=== PATIENT | female | born 1990 | race American Indian/Alaskan Native ===

== ENCOUNTER 2016-11-26 01:35 | Emergency (ER) | payer SELFPAY ==
[2016-11-26] MEDS ORDERED: Ketorolac 60 MG/2 ML SDV IM ONE (01:54)
--- NOTE | 2016-11-26 01:57 | EDM.PDOC ---
ED HPI GENERAL MEDICAL PROBLEM - General Chief Complaint: Headache Stated Complaint: HEAD PAIN Time Seen by Provider: 11/26/16 01:51 - History of Present Illness INITIAL COMMENTS - FREE TEXT/NARRATIVE: HISTORY AND PHYSICAL: History of present illness: Patient's 26-year-old female presents with a concern of dental fracture she's had for several months and now has right upper molar pain related to the fracture she states is also causing a right-sided headache Review of systems: As per history of present illness and below otherwise all systems reviewed and negative. Past medical history: As per history of present illness and as reviewed below otherwise noncontributory. Surgical history: As per history of present illness and as reviewed below otherwise noncontributory. Social history: No reported history of drug or alcohol abuse. Family history: As per history of present illness and as reviewed below otherwise noncontributory. Physical exam: HEENT: Atraumatic, normocephalic, pupils reactive, negative for conjunctival pallor or scleral icterus, mucous membranes moist, throat clear, neck supple, nontender, trachea midline. Dental fracture noted right upper molar Lungs: Clear to auscultation, breath sounds equal bilaterally, chest nontender. Heart: S1S2, regular, negative for clicks, rubs, or JVD. Abdomen: Soft, nondistended, nontender. Negative for masses or hepatosplenomegaly. Negative for costovertebral tenderness. Pelvis: Stable nontender. Genitourinary: Deferred. Rectal: Deferred. Extremities: Atraumatic, negative for cords or calf pain. Neurovascular unremarkable. Neuro: Awake, alert, oriented. Cranial nerves II through XII unremarkable. Cerebellum unremarkable. Motor and sensory unremarkable throughout. Exam nonfocal. Diagnostics: None Therapeutics: Toradol 60 mg IM Impression: #1 dentalgia #2 dental fracture Definitive disposition and diagnosis as appropriate pending reevaluation and review of above. - Related Data Allergies Allergy/AdvReac Type Severity Reaction Status Date / Time No Known Allergies Allergy Verified 02/04/15 15:35 Home Meds: Home Meds Vit No.130/Iron/FA [ Vitamins] 1 PO DAILY 07/11/14 [History] Vortioxetine Hydrobromide [Brintellix] 1 tab PO DAILY 02/04/15 [History] Past Medical History - Past Health History Medical/Surgical History: Denies Medical/Surgical History Other Genitourinary History: interstitial cystitis Social & Family History - Tobacco Use Smoking Status *Q: Current Every Day Smoker Years of Tobacco use: 4 Packs/Tins Daily: 0.1 Used Tobacco, but Quit: No Month Tobacco Last Used: june Second Hand Smoke Exposure: Yes - Alcohol Use Days Per Week of Alcohol Use: 1 Number of Drinks Per Day: 5 Total Drinks Per Week: 5 - Recreational Drug Use Recreational Drug Use: No Drug Use in Last 12 Months: Yes Recreational Drug Type: Reports: Marijuana/Hashish Recreational Drug Use Frequency: Binges ED ROS GENERAL - Review of Systems Review Of Systems: ROS reveals no pertinent complaints other than HPI. ED EXAM, GENERAL - Physical Exam Exam: See Below (See dictation) Course - Vital Signs Last Recorded V/S: Last Vital Signs Temp 36.6 C 11/26/16 01:49 Pulse 84 11/26/16 01:49 Resp 18 11/26/16 01:49 BP 132/102 H 11/26/16 01:49 Pulse Ox 97 11/26/16 01:49 Departure - Departure Time of Disposition: 01:56 Disposition: Home, Self-Care 01 Condition: Good Clinical Impression: Dentalgia - Discharge Information Referrals: PCP,None [Primary Care Provider] - Additional Instructions: The following information is given to patients seen in the emergency department who are being discharged to home. This information is to outline your options for follow-up care. We provide all patients seen in our emergency department with a follow-up referral. The need for follow-up, as well as the timing and circumstances, are variable depending upon the specifics of your emergency department visit. If you don't have a primary care physician on staff, we will provide you with a referral. We always advise you to contact your personal physician following an emergency department visit to inform them of the circumstance of the visit and for follow-up with them and/or the need for any referrals to a consulting specialist. The emergency department will also refer you to a specialist when appropriate. This referral assures that you have the opportunity for followup care with a specialist. All of these measure are taken in an effort to provide you with optimal care, which includes your followup. Under all circumstances we always encourage you to contact your private physician who remains a resource for coordinating your care. When calling for followup care, please make the office aware that this follow-up is from your recent emergency room visit. If for any reason you are refused follow-up, please contact the [facility] emergency department at and asked to speak to the emergency department charge nurse. Sylwia Davenport as prescribed keep dental appointment is scheduled return as needed as discussed
[2016-11-26 02:40] VITALS: BP 130/82
== END 2016-11-26 02:30 | disposition home or self-care (01) ==
LOC: MW.ED 01:35
DX: K08.89 Other specified disorders of teeth and supporting structures (principal); S02.5XXD Fracture of tooth (traumatic), subsequent encounter for fracture with routine healing; F17.210 Nicotine dependence, cigarettes, uncomplicated
CPT/HCPCS: 96372; 99283; J1885; 99282

== ENCOUNTER 2019-01-21 17:58 | Emergency (ER) | payer SELFPAY ==
--- NOTE | 2019-01-21 18:33 | EDM.PDOC ---
ED HPI GENERAL MEDICAL PROBLEM - General Chief Complaint: Genitourinary Problem Stated Complaint: stomach pain Time Seen by Provider: 01/21/19 18:00 Source of Information: Reports: Patient History Limitations: Reports: No Limitations - History of Present Illness INITIAL COMMENTS - FREE TEXT/NARRATIVE: HISTORY AND PHYSICAL: History of present illness: Patient is a 28-year-old female who presents to the emergency room with complaints of dysuria and low back pain. She is concerned she may have a UTI. She denies any vaginal discharge or concerns of STDs. Patient denies any fever, chills, headache, change in vision, syncope or near syncope. Denies any chest pain, back pain, shortness of breath or cough. Denies any abdominal pain, nausea , vomiting, diarrhea, constipation or dysuria. Has not noted any blood in urine or stool. Patient has been eating and drinking appropriately. Review of systems: As per history of present illness and below otherwise all systems reviewed and negative. Past medical history: As per history of present illness and as reviewed below otherwise noncontributory. Surgical history: As per history of present illness and as reviewed below otherwise noncontributory. Social history: See social history for further information Family history: As per history of present illness and as reviewed below otherwise noncontributory. Physical exam: General: Well-developed and well nourished 28 year old female. Alert and oriented. Nontoxic appearing and in no acute distress. HEENT: Atraumatic, normocephalic, pupils equal and reactive bilaterally, negative for conjunctival pallor or scleral icterus, mucous membranes moist, trachea midline. No drooling or trismus noted. No meningeal signs. No hot potato voice noted. Lungs: Clear to auscultation, breath sounds equal bilaterally, chest nontender. Heart: S1S2, regular rate and rhythm without overt murmur Abdomen: Soft, nondistended, nontender. Negative for masses. Negative for costovertebral tenderness. Pelvis: Stable nontender. Skin: Intact, warm, dry. No lesions or rashes noted. Extremities: Atraumatic, moves all extremities per self without difficulty or deficits, negative for cords or calf pain. Neurovascular unremarkable. Neuro: Awake, alert, oriented. Cranial nerves II through XII unremarkable. Cerebellum unremarkable. Motor and sensory unremarkable throughout. Exam nonfocal. Notes: Patient does have a urinary tract infection. She has been able to keep down fluid does not have any flank pain at this time. Culture has been added. We'll give Rocephin IM and medication education for home. We discussed signs and symptoms that would prompt him to return to the emergency room. Supportive care measures were reviewed and discussed. Voices understanding and is agreeable to plan of care. Denies any further questions or concerns at this time. Diagnostics: UA, HCGU Therapeutics: Rocephin IM Prescription: Cipro BID x 7 days Pyridium Tramadol (#15) Impression: UTI Plan: 1. Increase your oral fluids. 2. Take medications as prescribed. 3. Tylenol and/or ibuprofen as needed for pain management. 4. Follow up with your primary care for re-evaluation. Return to the ED as needed and as discussed. Definitive disposition and diagnosis as appropriate pending reevaluation and review of above. bladder/back Pain Score (Numeric/FACES): 7 - Related Data Allergies Allergy/AdvReac Type Severity Reaction Status Date / Time No Known Allergies Allergy Verified 01/21/19 18:19 Home Meds: Home Meds Citalopram [Citalopram HBr] 25 mg PO DAILY 01/21/19 [History] Past Medical History - Past Health History Medical/Surgical History: Denies Medical/Surgical History HEENT History: Reports: None Cardiovascular History: Reports: None Respiratory History: Reports: None Gastrointestinal History: Reports: None Genitourinary History: Reports: Other (See Below) Other Genitourinary History: interstitial cystitis 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: , Other (See Below) Other SPRING PRODUCTION SUPERVISOR History: Miscarriage Musculoskeletal History: Reports: Other (See Below) Other Musculoskeletal History: scoliosis Neurological History: Reports: None Psychiatric History: Reports: Depression Endocrine/Metabolic History: Reports: None Hematologic History: Reports: None Immunologic History: Reports: None Oncologic (Cancer) History: Reports: None Dermatologic History: Reports: None - Infectious Disease History Infectious Disease History: Reports: Chicken Pox - Past Surgical History Head Surgeries/Procedures: Reports: None HEENT Surgical History: Reports: None Cardiovascular Surgical History: Reports: None Respiratory Surgical History: Reports: None GI Surgical History: Reports: None Female Surgical History: Reports: None Endocrine Surgical History: Reports: None Neurological Surgical History: Reports: None Musculoskeletal Surgical History: Reports: None Oncologic Surgical History: Reports: None Dermatological Surgical History: Reports: None Social & Family History - Family History Family Medical History: Noncontributory - Tobacco Use Smoking Status *Q: Current Every Day Smoker Years of Tobacco use: 8 Packs/Tins Daily: 0.5 - Caffeine Use Caffeine Use: Reports: Coffee, Soda - Recreational Drug Use Recreational Drug Use: No ED ROS GENERAL - Review of Systems Review Of Systems: ROS reveals no pertinent complaints other than HPI. ED EXAM, RENAL/ - Physical Exam Exam: See Below (See dictation) Course - Vital Signs Last Recorded V/S: Last Vital Signs Temp 97.5 F 01/21/19 19:08 Pulse 85 01/21/19 19:08 Resp 14 01/21/19 19:08 BP 115/78 01/21/19 19:08 Pulse Ox 96 01/21/19 19:08 - Orders/Labs/Meds Orders: Active Orders 24 hr Category Date Time Status CULTURE URINE [RM] Stat Lab 01/21/19 18:40 Received Labs: Laboratory Tests 01/21/19 01/21/19 Range/Units 18:40 18:40 Urine Color YELLOW Urine Appearance SLT CLOUDY Urine pH 6.0 (5.0-8.0) Ur Specific Merritt 1.025 (1.001-1.035) Urine Protein 100 H (NEGATIVE) mg/dL Urine Glucose (UA) NEGATIVE (NEGATIVE) mg/dL Urine Ketones NEGATIVE (NEGATIVE) mg/dL Urine Occult Blood MODERATE H (NEGATIVE) Urine Nitrite POSITIVE H (NEGATIVE) Urine Bilirubin NEGATIVE (NEGATIVE) Urine Urobilinogen 0.2 (<2.0) EU/dL Ur Leukocyte Esterase MODERATE H (NEGATIVE) Urine RBC 2-4 (0-2/HPF) Urine WBC 70-80 (0-5/HPF) Ur Epithelial Cells FEW (NONE-FEW) Urine Bacteria 2+ H (NEGATIVE) Urine Mucus LIGHT (NONE-MOD) Urine HCG, Qual NEGATIVE (NEGATIVE) Meds: Medications Discontinued Medications Generic Name Dose Route Start Last Admin Trade Name Freq PRN Reason Stop Dose Admin Ceftriaxone Sodium 1 gm 01/21/19 19:09 01/21/19 19:18 Rocephin IM 01/21/19 19:10 1 gm ONETIME ONE Administration Lidocaine HCl Confirm 01/21/19 19:13 01/21/19 19:18 Xylocaine-Mpf 1% Administered 01/21/19 19:14 2.1 mls/hr Dose Administration 2 mls @ as directed .ROUTE .STK-MED ONE Departure - Departure Time of Disposition: 19:30 Disposition: Home, Self-Care 01 Clinical Impression: UTI (urinary tract infection) Qualifiers: Urinary tract infection type: acute cystitis Hematuria presence: with hematuria Qualified Code(s): N30.01 - Acute cystitis with hematuria - Discharge Information Instructions: Urinary Tract Infection, Adult, [id number] Referrals: Robert Denny MD [Primary Care Provider] - Forms: ED Department Discharge Additional Instructions: The following information is given to patients seen in the emergency department who are being discharged to home. This information is to outline your options for follow-up care. We provide all patients seen in our emergency department with a follow-up referral. The need for follow-up, as well as the timing and circumstances, are variable depending upon the specifics of your emergency department visit. If you don't have a primary care physician on staff, we will provide you with a referral. We always advise you to contact your personal physician following an emergency department visit to inform them of the circumstance of the visit and for follow-up with them and/or the need for any referrals to a consulting specialist. The emergency department will also refer you to a specialist when appropriate. This referral assures that you have the opportunity for follow-up care with a specialist. All of these measure are taken in an effort to provide you with optimal care, which includes your follow-up. Under all circumstances we always encourage you to contact your private physician who remains a resource for coordinating your care. When calling for follow-up care, please make the office aware that this follow-up is from your recent emergency room visit. If for any reason you are refused follow-up, please contact the [facility] Emergency Department at and asked to speak to the emergency department charge nurse. [facility] [address] [place] [id number] [address] 1. Increase your oral fluids. 2. Take medications as prescribed. 3. Tylenol and/or ibuprofen as needed for pain management. 4. Follow up with your primary care for re-evaluation. Return to the ED as needed and as discussed. - My Orders Last 24 Hours: My Active Orders 01/21/19 18:40 CULTURE URINE [RM] Stat - Assessment/Plan Last 24 Hours: My Active Orders 01/21/19 18:40 CULTURE URINE [RM] Stat
[2019-01-21 19:09] VITALS: BP 115/78; PULSE 85
[2019-01-21] MEDS ORDERED: cefTRIAXone 1 GM Vial IM ONE (19:09)
[2019-01-21] MEDS ORDERED: Lidocaine 1% 2 ML ONE (19:13)
== END 2019-01-21 19:46 | disposition home or self-care (01) ==
LOC: MW.ED 17:58
DX: N30.01 Acute cystitis with hematuria (principal); F32.9 Major depressive disorder, single episode, unspecified; F17.210 Nicotine dependence, cigarettes, uncomplicated; Z79.899 Other long term (current) drug therapy
CPT/HCPCS: 81001; 81025; 87086; 96372; 99283; J0696; J2001; 87088; 87186

== ENCOUNTER 2019-06-18 00:09 | Emergency (ER) | payer OTHER ==
[2019-06-18] MEDS ORDERED: LORazepam 1 MG Tab PO ONE (01:25)
[2019-06-18] MEDS ORDERED: LORazepam 1 MG Tab ONE (01:26)
--- NOTE | 2019-06-18 02:09 | CR ---
Indication: Chest pain Technique: Chest 1 view Comparison: 10/19/2017 Findings/Impression: Cardiovascular and mediastinum: Stable cardiomediastinal silhouette, allowing for differences in technique. Lungs and pleural space: Slight ill-defined increased opacity in the lateral left base is at least partially related to overlying soft tissues. Correlate clinically and follow up with PA technique. No pleural effusions. No pneumothorax seen. Bones and soft tissues: No significant findings. Dictated by North English MD @ 06/18/2019 2:08:05 AM Dictated by: North English MD @ 06/18/2019 02:08:11 (Electronically Signed)
--- NOTE | 2019-06-18 02:41 | EDM.PDOC ---
ED HPI GENERAL MEDICAL PROBLEM - General Chief Complaint: Respiratory Problem Stated Complaint: SHORTNESS OF BREATH Time Seen by Provider: 06/18/19 00:36 Source of Information: Reports: Patient History Limitations: Reports: No Limitations - History of Present Illness INITIAL COMMENTS - FREE TEXT/NARRATIVE: 29-year-old female who presents the emergency room burning in the chest after taking some herbal tea. Patient states she feels anxious and her chest joseph and she is concerned about that. Onset: Today Duration: Hour(s): Location: Reports: Chest Quality: Reports: Burning Severity: Mild Improves with: Reports: None Worsens with: Reports: None Associated Symptoms: Reports: No Other Symptoms chest Pain Score (Numeric/FACES): 7 - Related Data Allergies Allergy/AdvReac Type Severity Reaction Status Date / Time No Known Allergies Allergy Verified 01/21/19 18:19 Home Meds: Home Meds Citalopram [Citalopram HBr] 25 mg PO DAILY 01/21/19 [History] Past Medical History - Past Health History Medical/Surgical History: Denies Medical/Surgical History HEENT History: Reports: None Cardiovascular History: Reports: None Respiratory History: Reports: None Gastrointestinal History: Reports: None Genitourinary History: Reports: Other (See Below) Other Genitourinary History: interstitial cystitis 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: , 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 (See Below) Other FISCAL SERVICES MANAGER History: Miscarriage Musculoskeletal History: Reports: Other (See Below) Other Musculoskeletal History: scoliosis Neurological History: Reports: None Psychiatric History: Reports: Depression Endocrine/Metabolic History: Reports: None Hematologic History: Reports: None Immunologic History: Reports: None Oncologic (Cancer) History: Reports: None Dermatologic History: Reports: None - Infectious Disease History Infectious Disease History: Reports: None - Past Surgical History Head Surgeries/Procedures: Reports: None HEENT Surgical History: Reports: None Cardiovascular Surgical History: Reports: None Respiratory Surgical History: Reports: None GI Surgical History: Reports: None Female Surgical History: Reports: None Endocrine Surgical History: Reports: None Neurological Surgical History: Reports: None Musculoskeletal Surgical History: Reports: None Oncologic Surgical History: Reports: None Dermatological Surgical History: Reports: None Social & Family History - Family History Family Medical History: Noncontributory - Tobacco Use Smoking Status *Q: Current Every Day Smoker Years of Tobacco use: 6 Packs/Tins Daily: 1 - Caffeine Use Caffeine Use: Reports: Coffee, Soda - Recreational Drug Use Recreational Drug Use: No ED ROS GENERAL - Review of Systems Review Of Systems: See Below Constitutional: Reports: No Symptoms HEENT: Reports: No Symptoms Respiratory: Reports: Shortness of Breath Cardiovascular: Reports: Chest Pain Endocrine: Reports: No Symptoms GI/Abdominal: Reports: No Symptoms : Reports: No Symptoms Musculoskeletal: Reports: No Symptoms Skin: Reports: No Symptoms Neurological: Reports: No Symptoms Psychiatric: Reports: No Symptoms Hematologic/Lymphatic: Reports: No Symptoms Immunologic: Reports: No Symptoms ED EXAM, GENERAL - Physical Exam Exam: See Below Exam Limited By: No Limitations General Appearance: Alert, WD/WN, Anxious Eye Exam: Bilateral Eye: Normal Fundi, Normal Inspection Nose: Normal Inspection, Normal Mucosa Throat/Mouth: Normal Inspection, Normal Lips, Normal Teeth Head: Atraumatic, Normocephalic Neck: Normal Inspection, Supple Respiratory/Chest: No Respiratory Distress, Lungs Clear, No Accessory Muscle Use Cardiovascular: Normal Peripheral Pulses, Regular Rate, Rhythm, No JVD, No Murmur GI/Abdominal: Normal Bowel Sounds, Soft, Non-Tender, No Distention, No Abnormal Bruit (Female) Exam: Normal External Exam, Normal Speculum Exam Back Exam: Normal Inspection Extremities: Normal Inspection Neurological: Alert, Oriented, CN II-XII Intact, Normal Cognition Psychiatric: Normal Affect, Normal Mood Skin Exam: Warm, Intact, Normal Color Lymphatic: No Adenopathy EKG INTERPRETATION QRS: Normal ST-T: Normal QT: Normal Course - Vital Signs Last Recorded V/S: Last Vital Signs Temp 97.4 F 06/18/19 00:27 Pulse 96 06/18/19 00:27 Resp 18 06/18/19 00:27 BP 145/89 H 06/18/19 00:27 Pulse Ox 98 06/18/19 00:27 - Orders/Labs/Meds Orders: Active Orders 24 hr Category Date Time Status EKG Documentation Completion [RC] STAT Care 06/18/19 00:34 Active Meds: Medications Discontinued Medications Generic Name Dose Route Start Last Admin Trade Name Freq PRN Reason Stop Dose Admin Lorazepam 1 mg 06/18/19 01:25 06/18/19 01:30 Ativan PO 06/18/19 01:26 1 mg ONETIME ONE Administration Lorazepam Confirm 06/18/19 01:26 Ativan Administered 06/18/19 01:27 Dose 1 mg .ROUTE .STK-MED ONE Departure - Departure Time of Disposition: 02:39 Disposition: Home, Self-Care 01 Clinical Impression: Anxiety - Discharge Information Referrals: Robert Denny MD [Primary Care Provider] - Sepsis Event Note - Evaluation Sepsis Screening Result: No Definite Risk - Focused Exam Vital Signs: Vital Signs Temp Pulse Resp BP Pulse Ox 06/18/19 00:27 97.4 F 96 18 145/89 H 98 Date Exam was Performed: 06/18/19 Time Exam was Performed: 02:36 - My Orders Last 24 Hours: My Active Orders 06/18/19 00:34 EKG Documentation Completion [RC] STAT - Assessment/Plan Last 24 Hours: My Active Orders 06/18/19 00:34 EKG Documentation Completion [RC] STAT
[2019-06-18 02:54] VITALS: BP 118/74; PULSE 79
== END 2019-06-18 02:56 | disposition home or self-care (01) ==
LOC: MW.ED 00:09
DX: F41.9 Anxiety disorder, unspecified (principal); F32.9 Major depressive disorder, single episode, unspecified; F17.210 Nicotine dependence, cigarettes, uncomplicated; Z79.899 Other long term (current) drug therapy
CPT/HCPCS: 71045; 93005; 99285; A9270

== ENCOUNTER 2020-08-16 21:35 | Emergency (ER) | payer OTHER ==
[2020-08-16] MEDS ORDERED: Ketorolac 30 MG/ML SDV IM ONE (21:44)
[2020-08-16] MEDS ORDERED: Diazepam 2 MG Tab PO ONE (21:44)
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
[2020-08-17] MEDS ORDERED: Acetaminophen/oxyCODONE 325-10 MG Tab PO ONE (00:04)
[2020-08-17 00:23] VITALS: BP 112/76; PULSE 70
== END 2020-08-17 00:25 | disposition home or self-care (01) ==
LOC: MW.ED 21:35
DX: M62.838 Other muscle spasm (principal)
CPT/HCPCS: 70450; 71045; 72125; 72131; 96372; 99284; A9270; J1885; 99283

== ENCOUNTER 2021-02-10 23:49 | Emergency (ER) | payer OTHER ==
[2021-02-11] MEDS ORDERED: Lactated Ringers 1,000 ML IV ONE (00:01)
[2021-02-11] MEDS ORDERED: Sodium Chloride 0.9% 10 ML Syringe FLUSH PRN (00:01)
[2021-02-11] MEDS ORDERED: Sodium Chloride 0.9% 2.5 ML Syringe FLUSH PRN (00:01)
--- NOTE | 2021-02-11 00:05 | EDM.PDOC ---
ED HPI GENERAL MEDICAL PROBLEM - General Chief Complaint: Neurological Problem Stated Complaint: POSSIBLE SEIZURE Time Seen by Provider: 02/11/21 00:01 Source of Information: Reports: Patient, Significant Other History Limitations: Reports: No Limitations - History of Present Illness INITIAL COMMENTS - FREE TEXT/NARRATIVE: 30-year-old female presents with seizure activity. She was standing and joking with her significant other about 40 minutes ago when her eyes rolled back and she lost consciousness and fell to the ground and started having generalized tonic-clonic activity on the floor lasting for several minutes. She did hit the back of her head upon the fall. She admits to biting her tongue and she does not recollect the incident. She admits to chest tightness after waking up, along with left-sided frontal headache. She denies nausea, vomiting, fever, neck pain or stiffness, focal numbness or weakness. She denies drug use or alcohol use. She normally takes Xanax for anxiety but ran out 3 days ago. ROS: A 10-point review of systems, other than pertinent positives and negatives as stated per HPI, is otherwise negative Past medical history: No additional pertinent history Past Surgical history: No additional pertinent history Social history: No additional pertinent history Family history: No additional pertinent history PHYSICAL EXAM General: AOx4, GCS = 15, No distress HEENT: dry mucous membrane, tongue abrasion bilaterally Neck: supple, no meningismus, no Kernig or Brudzinski Cardiac: S1S2 RRR Respiratory: CTAB, no crackles or rales, no wheezing Abdomen: Soft, nontender, no rebound or guarding, nondistended, no pulsatile mass. Back: nontender to C/T/L-spine Musculoskeletal: NVI distally, no deformity Neuro: No focal deficits, CN 2 - 12 WNL. 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: Reports: , Other (See Below) Other P[employer] DESIGN ENGINEER History: Miscarriage Musculoskeletal History: Reports: Other (See Below) Other Musculoskeletal History: scoliosis Neurological History: Reports: None Psychiatric History: Reports: Depression Endocrine/Metabolic History: Reports: None Hematologic History: Reports: None Immunologic History: Reports: None Oncologic (Cancer) History: Reports: None Dermatologic History: Reports: None - Infectious Disease History Infectious Disease History: Reports: Chicken Pox, Shingles - Past Surgical History Head Surgeries/Procedures: Reports: None HEENT Surgical History: Reports: None Cardiovascular Surgical History: Reports: None Respiratory Surgical History: Reports: None GI Surgical History: Reports: None Female Surgical History: Reports: None Endocrine Surgical History: Reports: None Neurological Surgical History: Reports: None Musculoskeletal Surgical History: Reports: None Oncologic Surgical History: Reports: None Dermatological Surgical History: Reports: None Social & Family History - Family History Family Medical History: No Pertinent Family History - Caffeine Use Caffeine Use: Reports: Coffee, Soda ED ROS GENERAL - Review of Systems Review Of Systems: See Below (see dictation) ED EXAM, GENERAL - Physical Exam Exam: See Below (see dictation) #1 Interpretation EKG Interpretation Comments: Heart rate = 90 bpm, normal sinus rhythm, normal QRS interval, no STEMI. EKG and rhythm strip interpreted by me at 1206 Course - Vital Signs Last Recorded V/S: Last Vital Signs Temp 97.4 F 02/10/21 23:53 Pulse 77 02/11/21 01:17 Resp 17 02/11/21 01:17 BP 123/80 02/11/21 01:17 Pulse Ox 95 02/11/21 01:17 - Orders/Labs/Meds Orders: Active Orders 24 hr Category Date Time Status Cardiac Monitoring [RC] . DIRECTED Care 02/11/21 00:01 Active Pulse Oximetry [RC] ASDIRECTED Care 02/11/21 00:01 Active COMPREHENSIVE METABOLIC PN,CMP [CHEM] Stat Lab 02/11/21 00:14 Results CREATINE KINASE,CK [CHEM] Stat Lab 02/11/21 00:14 Results MAGNESIUM [CHEM] Stat Lab 02/11/21 00:14 Results PHOSPHORUS [CHEM] Stat Lab 02/11/21 00:14 Results PROLACTIN [CHEM] Stat Lab 02/11/21 00:14 Results TROPONIN I [CHEM] Stat Lab 02/11/21 00:14 Results Sodium Chloride 0.9% [Saline Flush] Med 02/11/21 00:01 Active 10 ml FLUSH ASDIRECTED PRN Sodium Chloride 0.9% [Saline Flush] Med 02/11/21 00:01 Active 2.5 ml FLUSH ASDIRECTED PRN Saline Lock Insert [OM.PC] Routine Oth 02/11/21 00:01 Ordered Medication Orders Sodium Chloride (Sodium Chloride 0.9% 10 Ml Syringe) 10 ml FLUSH ASDIRECTED PRN PRN Reason: Keep Vein Open Last Admin: 02/11/21 00:12 Dose: 10 ml Documented by: MILA Sodium Chloride (Sodium Chloride 0.9% 2.5 Ml Syringe) 2.5 ml FLUSH ASDIRECTED PRN PRN Reason: Keep Vein Open Last Admin: 02/11/21 00:12 Dose: 2.5 ml Documented by: MILA Labs: Laboratory Tests 02/11/21 02/11/21 02/11/21 Range/Units 00:14 00:14 00:14 WBC 8.96 (4.0-11.0) K/uL RBC 3.98 L (4.30-5.90) M/uL Hgb 12.0 (12.0-16.0) g/dL Hct 35.7 L (36.0-46.0) % MCV 89.7 (80.0-98.0) fL MCH 30.2 (27.0-32.0) pg MCHC 33.6 (31.0-37.0) g/dL RDW Std Deviation 41.2 (28.0-62.0) fl RDW Coeff of Jason 13 (11.0-15.0) % Plt Count 233 (150-400) K/uL MPV 9.40 (7.40-12.00) fL Neut % (Auto) 60.6 (48.0-80.0) % Lymph % (Auto) 30.7 (16.0-40.0) % [place] % (Auto) 5.4 (0.0-15.0) % Eos % (Auto) 3.1 (0.0-7.0) % Baso % (Auto) 0.2 (0.0-1.5) % Neut # (Auto) 5.4 (1.4-5.7) K/uL Lymph # (Auto) 2.8 H (0.6-2.4) K/uL [place] # (Auto) 0.5 (0.0-0.8) K/uL Eos # (Auto) 0.3 (0.0-0.7) K/uL Baso # (Auto) 0.0 (0.0-0.1) K/uL INR 0.94 APTT 35.0 H (18.6-31.3) SEC Sodium 135 L (136-145) mmol/L Potassium 3.4 L (3.5-5.1) mmol/L Chloride 98 (98-107) mmol/L Carbon Dioxide 27.3 (21.0-32.0) mmol/L BUN 8 (7.0-18.0) mg/dL Creatinine 0.6 (0.6-1.0) mg/dL Est Cr Clr Drug Dosing 115.47 mL/min Estimated GFR (MDRD) > 60.0 ml/min Glucose 86 (74-106) mg/dL Calcium 8.2 L (8.5-10.1) mg/dL Phosphorus 3.5 (2.6-4.7) mg/dL Magnesium 1.7 L (1.8-2.4) mg/dL Total Bilirubin 0.3 (0.2-1.0) mg/dL AST 25 (15-37) IU/L ALT 42 (14-63) IU/L Alkaline Phosphatase 93 (46-116) U/L Creatine Kinase 203 (26-308) U/L Troponin I < 0.050 (0.000-0.056) ng/mL Total Protein 7.3 (6.4-8.2) g/dL Albumin 3.6 (3.4-5.0) g/dL Globulin 3.7 (2.6-4.0) g/dL Albumin/Globulin Ratio 1.0 (0.9-1.6) Urine Color Urine Appearance Urine pH (5.0-8.0) Ur Specific [place] (1.001-1.035) Urine Protein (NEGATIVE) mg/dL Urine Glucose (UA) (NEGATIVE) mg/dL Urine Ketones (NEGATIVE) mg/dL Urine Occult Blood (NEGATIVE) Urine Nitrite (NEGATIVE) Urine Bilirubin (NEGATIVE) Urine Urobilinogen (<2.0) EU/dL Ur Leukocyte Esterase (NEGATIVE) Urine HCG, Qual (NEGATIVE) Urine Opiates Screen (NEGATIVE) Ur Oxycodone Screen (NEGATIVE) Urine Methadone Screen (NEGATIVE) Ur Barbiturates Screen (NEGATIVE) Ur Phencyclidine Scrn (NEGATIVE) Ur Amphetamine Screen (NEGATIVE) U Methamphetamines Scrn (NEGATIVE) U Benzodiazepines Scrn (NEGATIVE) U Cocaine Metab Screen (NEGATIVE) U Marijuana (THC) Screen (NEGATIVE) 02/11/21 02/11/21 02/11/21 Range/Units 00:55 00:55 00:55 WBC (4.0-11.0) K/uL RBC (4.30-5.90) M/uL Hgb (12.0-16.0) g/dL Hct (36.0-46.0) % MCV (80.0-98.0) fL MCH (27.0-32.0) pg MCHC (31.0-37.0) g/dL RDW Std Deviation (28.0-62.0) fl RDW Coeff of Jason (11.0-15.0) % Plt Count (150-400) K/uL MPV (7.40-12.00) fL Neut % (Auto) (48.0-80.0) % Lymph % (Auto) (16.0-40.0) % [place] % (Auto) (0.0-15.0) % Eos % (Auto) (0.0-7.0) % Baso % (Auto) (0.0-1.5) % Neut # (Auto) (1.4-5.7) K/uL Lymph # (Auto) (0.6-2.4) K/uL [place] # (Auto) (0.0-0.8) K/uL Eos # (Auto) (0.0-0.7) K/uL Baso # (Auto) (0.0-0.1) K/uL INR APTT (18.6-31.3) SEC Sodium (136-145) mmol/L Potassium (3.5-5.1) mmol/L Chloride (98-107) mmol/L Carbon Dioxide (21.0-32.0) mmol/L BUN (7.0-18.0) mg/dL Creatinine (0.6-1.0) mg/dL Est Cr Clr Drug Dosing mL/min Estimated GFR (MDRD) ml/min Glucose (74-106) mg/dL Calcium (8.5-10.1) mg/dL Phosphorus (2.6-4.7) mg/dL Magnesium (1.8-2.4) mg/dL Total Bilirubin (0.2-1.0) mg/dL AST (15-37) IU/L ALT (14-63) IU/L Alkaline Phosphatase (46-116) U/L Creatine Kinase (26-308) U/L Troponin I (0.000-0.056) ng/mL Total Protein (6.4-8.2) g/dL Albumin (3.4-5.0) g/dL Globulin (2.6-4.0) g/dL Albumin/Globulin Ratio (0.9-1.6) Urine Color YELLOW Urine Appearance CLEAR Urine pH 7.0 (5.0-8.0) Ur Specific [place] 1.010 (1.001-1.035) Urine Protein NEGATIVE (NEGATIVE) mg/dL Urine Glucose (UA) NEGATIVE (NEGATIVE) mg/dL Urine Ketones NEGATIVE (NEGATIVE) mg/dL Urine Occult Blood NEGATIVE (NEGATIVE) Urine Nitrite NEGATIVE (NEGATIVE) Urine Bilirubin NEGATIVE (NEGATIVE) Urine Urobilinogen 0.2 (<2.0) EU/dL Ur Leukocyte Esterase NEGATIVE (NEGATIVE) Urine HCG, Qual NEGATIVE (NEGATIVE) Urine Opiates Screen NEGATIVE (NEGATIVE) Ur Oxycodone Screen NEGATIVE (NEGATIVE) Urine Methadone Screen NEGATIVE (NEGATIVE) Ur Barbiturates Screen NEGATIVE (NEGATIVE) Ur Phencyclidine Scrn NEGATIVE (NEGATIVE) Ur Amphetamine Screen NEGATIVE (NEGATIVE) U Methamphetamines Scrn NEGATIVE (NEGATIVE) U Benzodiazepines Scrn NEGATIVE (NEGATIVE) U Cocaine Metab Screen NEGATIVE (NEGATIVE) U Marijuana (THC) Screen NEGATIVE (NEGATIVE) Meds: Medications Generic Name Dose Route Start Last Admin Trade Name Freq PRN Reason Stop Dose Admin Sodium Chloride 10 ml 11/18/21 00:01 02/11/21 00:12 Sodium Chloride 0.9% 10 Ml Syringe FLUSH 10 ml ASDIRECTED PRN Administration Keep Vein Open Sodium Chloride 2.5 ml 02/11/21 00:01 02/11/21 00:12 Sodium Chloride 0.9% 2.5 Ml Syringe FLUSH 2.5 ml ASDIRECTED PRN Administration Keep Vein Open Discontinued Medications Generic Name Dose Route Start Last Admin Trade Name Taylor PRN Reason Stop Dose Admin Lactated Ringer's 1,000 mls @ 999 mls/hr 02/11/21 00:01 02/11/21 00:12 Ringers, Lactated IV 02/11/21 01:01 999 mls/hr .BOLUS ONE Administration - Re-Assessments/Exams Free Text/Narrative Re-Assessment/Exam: 02/11/21 02:25 After prolonged observation in the ER, the patient improved and is currently s table for discharge. I performed a repeat exam and did not appreciate new abnormal findings. Patient exhibits normal vital signs and has a normal gait on road test. I advised the patient to return to the ER for reevaluation if symptoms worsened, including fever, worsening pain, or any other worrisome symptoms. I instructed the patient to follow up with neurology clinic within 2-3 days. MEDICAL DECISION MAKING: This patient was evaluated during the COVID-19 pandemic where resources and capacity might be affected. I reviewed the patients past medical records, lab and radiographic findings. I discussed the case with the patient. My differential diagnosis included: New onset seizure, space-occupying lesion. CT does not demonstrate any space-occupying lesion. Electrolytes were unremarkable with a normal prolactin level. Patient observed in the ED for prolonged period of time with no recurrence of seizure activity, stable for outpatient neurology follow-up. Departure - Departure Time of Disposition: 01:54 Disposition: Home, Self-Care 01 Condition: Good Clinical Impression: New onset seizure - Discharge Information *PRESCRIPTION DRUG MONITORING PROGRAM REVIEWED*: Not Applicable *COPY OF PRESCRIPTION DRUG MONITORING REPORT IN PATIENT RENETTA: Not Applicable Instructions: Seizure, Adult, [id number] Referrals: Robert Denny MD [Primary Care Provider] - Forms: ED Department Discharge Additional Instructions: The need for follow-up, as well as the timing and circumstances, are variable depending upon the specifics of your emergency department visit. If you don't have a primary care physician on staff, we will provide you with a referral. We always advise you to contact your personal physician following an emergency department visit to inform them of the circumstance of the visit and for follow-up with them and/or the need for any referrals to a consulting specialist. The emergency department will also refer you to a specialist when appropriate. This referral assures that you have the opportunity for follow-up care with a specialist. All of these measure are taken in an effort to provide you with optimal care, which includes your follow-up. Under all circumstances we always encourage you to contact your private physician who remains a resource for coordinating your care. When calling for follow-up care, please make the office aware that this follow-up is from your recent emergency room visit. If for any reason you are refused follow-up, please contact the [facility] Emergency Department at and asked to speak to the emergency department charge nurse. If you do not have a primary care doctor, please follow up with the clinics below within 3-5 days. Neurology [facility] - Neurology [address], [address] [place] [address] Sepsis Event Note (ED) - Evaluation Sepsis Screening Result: No Definite Risk - Focused Exam Vital Signs: Vital Signs Temp Pulse Resp BP Pulse Ox 02/11/21 01:17 77 17 123/80 95 02/10/21 23:53 97.4 F 102 H 20 135/79 99 - My Orders Last 24 Hours: My Active Orders 02/11/21 00:01 Cardiac Monitoring [RC] . DIRECTED Pulse Oximetry [RC] ASDIRECTED Sodium Chloride 0.9% [Saline Flush] 10 ml FLUSH ASDIRECTED PRN Sodium Chloride 0.9% [Saline Flush] 2.5 ml FLUSH ASDIRECTED PRN Saline Lock Insert [OM.PC] Routine 02/11/21 00:14 COMPREHENSIVE METABOLIC PN,CMP [CHEM] Stat CREATINE KINASE,CK [CHEM] Stat MAGNESIUM [CHEM] Stat PHOSPHORUS [CHEM] Stat PROLACTIN [CHEM] Stat TROPONIN I [CHEM] Stat - Assessment/Plan Last 24 Hours: My Active Orders 02/11/21 00:01 Cardiac Monitoring [RC] . DIRECTED Pulse Oximetry [RC] ASDIRECTED Sodium Chloride 0.9% [Saline Flush] 10 ml FLUSH ASDIRECTED PRN Sodium Chloride 0.9% [Saline Flush] 2.5 ml FLUSH ASDIRECTED PRN Saline Lock Insert [OM.PC] Routine 02/11/21 00:14 COMPREHENSIVE METABOLIC PN,CMP [CHEM] Stat CREATINE KINASE,CK [CHEM] Stat MAGNESIUM [CHEM] Stat PHOSPHORUS [CHEM] Stat PROLACTIN [CHEM] Stat TROPONIN I [CHEM] Stat
[2021-02-11 00:52] LABS: BLOOD UREA NITROGEN,BUN 8 mg/dL (7.0-18.0); CARBON DIOXIDE,CO2 27.3 mmol/L (21.0-32.0); CHLORIDE,CL 98 mmol/L (98-107); GLUCOSE RANDOM 86 mg/dL (74-106); POTASSIUM,K 3.4 mmol/L (3.5-5.1); SODIUM,NA 135 mmol/L (136-145)
--- NOTE | 2021-02-11 01:47 | CR ---
Indication: Headache and new onset seizure Technique: Chest 1 view Comparison: Chest x-ray 08/16/2020 Findings/Impression: Cardiovascular and mediastinum: Heart size and vasculature are normal in caliber and appearance. Lungs and pleural space: No pleural effusion or pneumothorax. Slight reticular interstitial prominence right lung base. This is probably soft tissue related although a minimal interstitial process such as viral pneumonia is possible. Bones and soft tissues: No acute findings. Dictated by Baldemar David MD @ 02/11/2021 1:45:37 AM (Electronically Signed)
--- NOTE | 2021-02-11 01:50 | CT ---
INDICATION: Headache and new seizure. TECHNIQUE: CT head without contrast. COMPARISON: Head CT 08/16/2020 FINDINGS: CSF spaces: Within normal limits for age. Brain parenchyma: The alonso-white differentiation is normal. No sign of mass, hemorrhage, or midline shift. Skull base and calvarium: The visualized paranasal sinuses and mastoid air cells demonstrate no acute or significant findings. The visualized orbits are grossly unremarkable. No skull fractures. IMPRESSION: Unremarkable noncontrast head CT. Please note that all CT scans at this facility use dose modulation, iterative reconstruction, and/or weight-based dosing when appropriate to reduce radiation dose to as low as reasonably achievable. Dictated by Baldemar David MD @ 02/11/2021 1:48:29 AM (Electronically Signed)
[2021-02-11 02:04] VITALS: BP 118/79; PULSE 76
== END 2021-02-11 02:05 | disposition home or self-care (01) ==
LOC: MW.ED 23:49
DX: R56.9 Unspecified convulsions (principal)
CPT/HCPCS: 36415; 70450; 71045; 80053; 80305; 81003; 81025; 82550; 83735; 84100; 84146; 84484; 85025; 85610; 85730; 93005; 99285; J7120

== ENCOUNTER 2021-11-21 20:12 | Inpatient (IN) | payer BC ==
[2021-11-21] MEDS ORDERED: Ondansetron 4 MG/2 ML SDV IVPUSH PRN (20:20)
[2021-11-21] MEDS ORDERED: Sodium Chloride 0.9% 2.5 ML Syringe FLUSH PRN (20:20)
[2021-11-21] MEDS ORDERED: Terbutaline 1 MG/ML SDV SUBCUT PRN (20:20)
[2021-11-21] MEDS ORDERED: Methylergonovine 0.2 MG/1 ML Amp IM PRN (20:20)
[2021-11-21] MEDS ORDERED: Water For Irrigation,Sterile 1,000 ML Container IRR PRN (20:20)
[2021-11-21] MEDS ORDERED: Lidocaine 1% 50 ML MDV INJECT PRN (20:20)
[2021-11-21] MEDS ORDERED: Tranexamic Acid 1,000 MG in Sodium Chloride 0.9% 100 ML IV PRN (20:20)
[2021-11-21] MEDS ORDERED: Carboprost Tromethamine 250 MCG/1 ML Amp IM PRN (20:20)
[2021-11-21] MEDS ORDERED: Sodium Chloride 0.9% 20 ML SDV IV PRN (20:20)
[2021-11-21] MEDS ORDERED: Misoprostol 200 MCG Tab PO PRN (20:20)
[2021-11-21] MEDS ORDERED: Sodium Chloride 0.9% 10 ML Syringe FLUSH PRN (20:20)
[2021-11-21] MEDS ORDERED: Butorphanol 1 MG/ML SDV IVPUSH PRN (20:20)
[2021-11-21] MEDS ORDERED: Misoprostol 25 MCG (1/4 of 100 MCG) Tab VAG PRN (21:00)
[2021-11-22] MEDS ORDERED: Misoprostol 25 MCG (1/4 of 100 MCG) Tab VAG PRN (01:00)
[2021-11-22] MEDS ORDERED: Oxytocin/0.9 % Sodium Chloride 30 UNIT/500 ML BAG IV SCH ×2 (05:00)
[2021-11-22] MEDS ORDERED: ePHEDrine 50 MG/ML SDV IVPUSH PRN ×2 (06:02)
[2021-11-22] MEDS ORDERED: Ropivacaine HCl/PF 400 MG in Premix Bag 1 BAG EPIDUR SCH (06:15)
[2021-11-22] MEDS ORDERED: Phenylephrine HCl In 0.9% NaCl 1 MG/10 ML Vial IVPUSH SCH (06:15)
[2021-11-22] MEDS: Lactated Ringers 1,000 ML IV SCH ×4 (09:00→17:42)
[2021-11-22] MEDS ORDERED: Acetaminophen 500 MG Tab PO PRN ×2 (21:14)
[2021-11-22] MEDS ORDERED: Methylergonovine 0.2 MG/1 ML Amp IM PRN (21:14)
[2021-11-22] MEDS ORDERED: Benzocaine/Menthol 20%-0.5% Spray 78 GM Cannister TOP PRN (21:14)
[2021-11-22] MEDS ORDERED: Bisacodyl 10 MG Supp RECTAL PRN (21:14)
[2021-11-22] MEDS ORDERED: Ibuprofen 400 MG Tab PO PRN (21:14)
[2021-11-22] MEDS ORDERED: Tranexamic Acid 1,000 MG in Sodium Chloride 0.9% 100 ML IV PRN (21:14)
[2021-11-22] MEDS ORDERED: Witch Hazel Medicated Pads 40/Jar TOP PRN (21:14)
[2021-11-22] MEDS ORDERED: Lanolin 100% Cream 7 GM Tube TOP PRN (21:14)
[2021-11-22] MEDS ORDERED: HERBAL DRUGS PO PRN (21:17)
[2021-11-22] MEDS: Ibuprofen 800 MG Tab PO PRN (21:39)
[2021-11-23] MEDS ORDERED: Oxytocin/0.9 % Sodium Chloride 30 UNIT/500 ML BAG ONE (00:40)
[2021-11-23] MEDS ORDERED: Carboprost Tromethamine 250 MCG/1 ML Amp ONE ×2 (00:53→01:17)
[2021-11-23] MEDS ORDERED: Lactated Ringers 1,000 ML IV SCH (01:00)
[2021-11-23] MEDS ORDERED: Propofol 200 MG/20 ML SDV ONE (01:04)
[2021-11-23] MEDS ORDERED: Lidocaine 2% 5 ML SDV ONE (01:04)
[2021-11-23] MEDS ORDERED: Ondansetron 4 MG/2 ML SDV ONE ×2 (01:04→01:11)
[2021-11-23] MEDS ORDERED: Succinylcholine/Sod PF 100 MG/5 ML SYRINGE IV ONE (01:04)
[2021-11-23] MEDS ORDERED: fentaNYL 100 MCG/2 ML SDV ONE ×2 (01:04→01:41)
[2021-11-23] MEDS ORDERED: Methylergonovine 0.2 MG/1 ML Amp ONE (01:18)
[2021-11-23] MEDS ORDERED: Tranexamic Acid 1,000 MG/10 ML Vial ONE (01:23)
[2021-11-23] MEDS ORDERED: Oxytocin 10 Units/1 ML SDV ONE ×3 (01:31)
[2021-11-23] MEDS ORDERED: HYDROmorphone 1 MG/ML Syringe IVPUSH PRN ×2 (01:41→01:49)
[2021-11-23] MEDS ORDERED: Albuterol 0.083% 2.5 MG/3 ML Neb Soln NEB PRN ×2 (01:41→01:49)
[2021-11-23] MEDS ORDERED: Metoclopramide 10 MG/2 ML SDV IVPUSH PRN ×2 (01:41→01:49)
[2021-11-23] MEDS ORDERED: fentaNYL 50 MCG/ML SDV IVPUSH PRN ×2 (01:41→01:49)
[2021-11-23] MEDS ORDERED: Ondansetron 4 MG/2 ML SDV IVPUSH PRN ×2 (01:41→01:49)
[2021-11-23] MEDS ORDERED: Naloxone 0.4 MG/ML SDV IVPUSH PRN ×2 (01:41→01:49)
[2021-11-23] MEDS ORDERED: Morphine 2 MG/ML SYRINGE IVPUSH PRN (01:46)
[2021-11-23] MEDS ORDERED: Morphine 4 MG/ML VIAL IVPUSH PRN (01:49)
[2021-11-23] MEDS ORDERED: Promethazine 25 MG/ML SDV ONE (02:29)
[2021-11-23] MEDS ORDERED: ceFAZolin 2 GM in Premix Bag 1 BAG IV ONE (02:30)
[2021-11-23] MEDS: ceFAZolin/Dextrose,Iso-Osmotic 2 GM/50 ML Duplex Bag (Premix) IV SCH ×3 (03:37→18:44)
[2021-11-23] MEDS: Ibuprofen 800 MG Tab PO PRN ×2 (05:55→14:29)
[2021-11-23] MEDS ORDERED: CITALOPRAM 20 MG PO SCH (09:00)
[2021-11-23] MEDS: Fish Oil/Omega-3 Fatty Acids 1 Gm Cap PO SCH (09:05)
[2021-11-23] MEDS: Prenatal Multivitamin with Calcium/Folic Acid/Iron Tab PO SCH (09:06)
[2021-11-23] MEDS: Magnesium Oxide 400 MG Tab PO SCH (09:06)
[2021-11-23] MEDS: Docusate Sodium 100 MG Cap PO PRN (09:11)
[2021-11-24] MEDS: Ibuprofen 800 MG Tab PO PRN ×2 (02:51→13:48)
[2021-11-24] MEDS: ceFAZolin/Dextrose,Iso-Osmotic 2 GM/50 ML Duplex Bag (Premix) IV SCH ×2 (02:53→10:02)
[2021-11-24 08:00] VITALS: PULSE 86
[2021-11-24] MEDS: Docusate Sodium 100 MG Cap PO PRN (09:20)
[2021-11-24] MEDS: Prenatal Multivitamin with Calcium/Folic Acid/Iron Tab PO SCH (09:20)
[2021-11-24] MEDS: Magnesium Oxide 400 MG Tab PO SCH (09:21)
[2021-11-24] MEDS: Fish Oil/Omega-3 Fatty Acids 1 Gm Cap PO SCH (09:21)
[2021-11-24 13:41] VITALS: BP 147/65
== END 2021-11-24 18:00 | disposition home or self-care (01) | DRG 542 ==
LOC: MW.OB 20:12 → INTOOBSV 20:43 → OBSVTOIN 20:43 → MW.OB 21:03 → OBSVTOIN 11-22 20:43 → MW.OB 11-22 23:45
PROVIDERS: ADMIT Obstetrics & Gynecology; ATTEND Obstetrics & Gynecology
PROC: 10D07Z6 Extraction of Products of Conception, Vacuum, Via Natural or Artificial Opening (ICD-10-PCS; principal; 2021-11-22)
PROC: 10907ZC Drainage of Amniotic Fluid, Therapeutic from Products of Conception, Via Natural or Artificial Opening (ICD-10-PCS; 2021-11-22)
PROC: 3E033VJ Introduction of Other Hormone into Peripheral Vein, Percutaneous Approach (ICD-10-PCS; 2021-11-22)
PROC: 0KQM0ZZ Repair Perineum Muscle, Open Approach (ICD-10-PCS; 2021-11-22)
PROC: 3E0R3BZ Introduction of Anesthetic Agent into Spinal Canal, Percutaneous Approach (ICD-10-PCS; 2021-11-22)
PROC: 00HU33Z Insertion of Infusion Device into Spinal Canal, Percutaneous Approach (ICD-10-PCS; 2021-11-22)
PROC: 30233N1 Transfusion of Nonautologous Red Blood Cells into Peripheral Vein, Percutaneous Approach (ICD-10-PCS; 2021-11-22)
PROC: 0UQC7ZZ Repair Cervix, Via Natural or Artificial Opening (ICD-10-PCS; 2021-11-23)
PROC: 0UDB7ZZ Extraction of Endometrium, Via Natural or Artificial Opening (ICD-10-PCS; 2021-11-23)
DX: O48.0 Post-term pregnancy (principal); Z37.0 Single live birth; O77.0 Labor and delivery complicated by meconium in amniotic fluid; O69.81X0 Labor and delivery complicated by cord around neck, without compression, not applicable or unspecified; O71.3 Obstetric laceration of cervix; Z20.822 Contact with and (suspected) exposure to COVID-19; O99.02 Anemia complicating childbirth; D64.9 Anemia, unspecified; O99.344 Other mental disorders complicating childbirth; F32.A Depression, unspecified; F41.9 Anxiety disorder, unspecified; O99.334 Smoking (tobacco) complicating childbirth; F17.210 Nicotine dependence, cigarettes, uncomplicated; O72.1 Other immediate postpartum hemorrhage; O75.81 Maternal exhaustion complicating labor and delivery; Z86.16 Personal history of COVID-19; Z3A.41 41 weeks gestation of pregnancy
CPT/HCPCS: 36415; 51702; 59025; 59409; 59414; 80305-QW; 82803; 85014; 85018; 85027; 85384; 85610; 85730; 86592; 86850; 86900; 86901; A9270-GY; J0330; J0690; J2001; J2210; J2405; J2590; J2704; J2795; J3010; J3490; J7120; P9016; P9017; U0002

== ENCOUNTER 2023-01-01 20:15 | Emergency (ER) | payer SELFPAY ==
[2023-01-01 20:55] VITALS: BP 141/102
[2023-01-01] MEDS ORDERED: methylPREDNISolone Sodium Succinate 125 MG/2 ML SDV IM ONE (21:11)
[2023-01-01] MEDS ORDERED: Acetaminophen/HYDROcodone 325-5 MG Tab PO ONE (21:11)
[2023-01-01 21:32] VITALS: PULSE 101
== END 2023-01-01 21:31 | disposition home or self-care (01) ==
LOC: MW.ED 20:15
DX: M54.42 Lumbago with sciatica, left side (principal); M54.41 Lumbago with sciatica, right side
CPT/HCPCS: 96372; 99283; A9270; J2930

== ENCOUNTER 2024-02-11 15:04 | Emergency (ER) | payer SELFPAY ==
[2024-02-11 15:59] VITALS: BP 130/97; PULSE 83
[2024-02-11] MEDS: Sodium Chloride 0.9% 1,000 ML IV ONE (16:18)
[2024-02-11 16:42] LABS: APPEARANCE,URINE SLT CLOUDY; COLOR,URINE YELLOW; GLUCOSE,URINE NEGATIVE (NEGATIVE); KETONES,URINE 15 mg/dL (NEGATIVE); LEUKOCYTE ESTERASE,URINE NEGATIVE (NEGATIVE); NITRITE,URINE NEGATIVE (NEGATIVE); OCCULT BLOOD,URINE NEGATIVE (NEGATIVE); PROTEIN,URINE TRACE mg/dL (NEGATIVE); UROBILINOGEN,URINE 0.2 EU/dL (<2.0)
[2024-02-11 16:44] LABS: BILIRUBIN,URINE SMALL (NEGATIVE)
[2024-02-11 16:54] LABS: BACTERIA,URINE RARE (NEGATIVE); EPITHELIAL CELLS,URINE FEW (NONE-FEW); RBC,URINE 0-3 (0-2/HPF); WBC,URINE 0-3 (0-5/HPF)
[2024-02-11 16:56] LABS: BASOPHILS ABSOLUTE AUTO 0.05 K/uL (0.00-0.20); BASOPHILS PERCENT AUTO 0.8 % (0.0-1.0); EOSINOPHILS ABSOLUTE AUTO 0.13 K/uL (0.00-0.45); HEMATOCRIT 39.1 % (37.0-47.0); HEMOGLOBIN 13.7 g/dL (12.0-16.0); IMMATURE GRAN ABSOLUTE AUTO 0.02 K/uL (0.00-0.05); IMMATURE GRAN PERCENT AUTO 0.3 % (0.0-0.4); LYMPHOCYTES ABSOLUTE AUTO 1.57 K/uL (1.00-4.80); LYMPHOCYTES PERCENT AUTO 24.3 % (24.0-44.0); MEAN CORPUSCULAR HEMOGLOBIN 30.3 pg (28.0-32.0); MEAN CORPUSCULAR VOLUME 86.5 fL (83.0-99.0); MEAN PLATELET VOLUME 8.8 fL (9.4-12.3); MONOCYTES ABSOLUTE AUTO 0.35 K/uL (0.00-0.80); MONOCYTES PERCENT AUTO 5.4 % (0.0-8.0); NEUTROPHILS ABSOLUTE AUTO 4.34 K/uL (1.80-7.70); NEUTROPHILS PERCENT AUTO 67.2 % (41.0-71.0); PLATELET COUNT,PLT 239 K/uL (150-400); RED BLOOD CELL COUNT 4.52 M/uL (4.10-5.30); WHITE BLOOD CELL COUNT,WBC 6.46 K/uL (3.9-11.3)
[2024-02-11 17:18] LABS: A/G RATIO 1.4 (0.9-1.6); ALBUMIN 4.2 g/dL (3.4-5.0); BILIRUBIN TOTAL 0.5 mg/dL (0.2-1.0); CALCIUM 8.7 mg/dL (8.5-10.1); CREATININE 0.8 mg/dL (0.6-1.0); EST CRCL DRUG DOSING (CG) 84.29 mL/min; POTASSIUM,K 4.1 mmol/L (3.5-5.1); PROTEIN TOTAL,TP 7.3 g/dL (6.4-8.2)
[2024-02-11 17:36] LABS: CANDIDA DNA PROBE NEGATIVE (NEGATIVE); GARDNERELLA DNA PROBE POSITIVE (NEGATIVE); TRICHOMONAS DNA PROBE NEGATIVE (NEGATIVE)
[2024-02-11] MEDS: metroNIDAZOLE 250 MG Tab PO ONE (18:20)
[2024-02-11 19:18] LABS: C. TRACHOMATIS BY PCR NOT DETECTED; N. GONORRHOEAE BY PCR NOT DETECTED
== END 2024-02-11 19:23 | disposition home or self-care (01) ==
LOC: MW.ED 15:04
DX: N76.0 Acute vaginitis (principal); F17.210 Nicotine dependence, cigarettes, uncomplicated; Z79.899 Other long term (current) drug therapy; Z75.8 Other problems related to medical facilities and other health care
CPT/HCPCS: 36415; 80053; 81001; 83690; 85025; 87480; 87491; 87510; 87591; 87660; 99284; A9270